=== PATIENT | female | born 1995 | race Caucasian/White ===

== ENCOUNTER 2017-10-02 15:33 | Outpatient (CLI) | payer OTHER ==
--- NOTE | 2017-10-02 17:11 | Non Stress Test Report ---
Non Stress Test Datetime Report Generated by CPN: 10/02/2017 17:11 DEMOGRAPHIC EGA NST: 40.6 INDICATION Indication for Study: Other Indication for Study (NST) Other: repeat NST, post dates VITAL SIGNS Temperature - NST: 97.9 Pulse - NST: 99 RESP - NST: 14 NBPSYS NST: 106 NBPDIA NST: 69 MONITORING Monitor Explained: Monitor Explained; Test Explained; Patient Verbalized Understanding Time on Monitor: 10/02/2017 15:49 Time off Monitor: 10/02/2017 16:43 NST Duration: 54 NST INTERVENTIONS NST Interventions: PO Hydration Physician Notified NST: Dr. Bustos BABY A: [id number] BABY A Movement : Present Contraction Frequency : rare FHR Baseline : 145 Accelerations : 15X15 Decelerations : None Variability : Moderate 6-25bpm NST Review: Meets Criteria for Reactive NST NST Review and Verified By : ALISON Fletcher Results: Reactive NST REPORT Report Trigger: Send Report
== END 2017-10-02 16:50 | disposition home or self-care (01) ==
LOC: LC 15:33 → UNDOADMIN 10-05 01:51 → LR 10-05 01:51 → UNDODISIN 10-05 02:07
PROVIDERS: ATTEND Obstetrics & Gynecology Gynecology
PROC: 4A1HXCZ Monitoring of Products of Conception, Cardiac Rate, External Approach (ICD-10-PCS; principal; 2017-10-02)
DX: O48.0 Post-term pregnancy (principal); Z3A.40 40 weeks gestation of pregnancy
CPT/HCPCS: 59025

== ENCOUNTER 2017-10-05 02:05 | Inpatient (IN) | payer OTHER ==
[2017-10-05] MEDS ORDERED: RINGERS SOLUTION,LACTATED 300 ML IV ONE (02:13)
[2017-10-05] MEDS ORDERED: RINGERS SOLUTION,LACTATED 1,000 ML IV PRN (02:13)
[2017-10-05] MEDS ORDERED: DINOPROSTONE 10 MG VAGINAL INSERT.SR PV PRN (02:13)
[2017-10-05 02:36] LABS: ABSOLUTE EOSINOPHILS # (AUTO) 0.1 10^3/uL (0.0-0.6); ABSOLUTE LYMPHOCYTES (AUTO) 2.1 10^3/uL (0.5-4.7); ABSOLUTE MONOCYTES (AUTO) 0.5 10^3/uL (0.1-1.4); ABSOLUTE NEUT (AUTO) 4.8 10^3/uL (1.7-8.2); BASOPHILS % (AUTO) 0.3 % (0-2); EOSINOPHILS % (AUTO) 1.2 % (0-6); HEMATOCRIT 39.8 % (36.0-47.0); HEMOGLOBIN 13.7 g/dL (12.0-15.5); LYMPHOCYTES % (AUTO) 28.1 % (13-45); MEAN CORPUSCULAR HEMOGLOBIN 29.7 pg (27.0-33.4); MEAN CORPUSCULAR HGB CONC 34.3 g/dL (32.0-36.0); MEAN CORPUSCULAR VOLUME 87 fl (80-97); MONOCYTES % (AUTO) 6.7 % (3-13); PLATELET COUNT 189 10^3/uL (150-450); RED CELL DISTRIBUTION WIDTH 14.6 % (11.5-14.0); SEGMENTED NEUTROPHILS % (AUTO) 63.7 % (42-78); TOTAL CELLS COUNTED % (AUTO) 100 %; WHITE BLOOD COUNT 7.6 10^3/uL (4.0-10.5)
[2017-10-05 02:40] LABS: APPEARANCE,URINE CLOUDY; BILIRUBIN,URINE NEGATIVE (NEGATIVE); COLOR,URINE YELLOW; GLUCOSE, URINE 150 mg/dL (NEGATIVE); KETONES,URINE NEGATIVE (NEGATIVE); LEUKOCYTE ESTERASE,URINE LARGE (NEGATIVE); NITRITE,URINE NEGATIVE (NEGATIVE); PROTEIN,URINE NEGATIVE (NEGATIVE); URINE SPECIFIC GRAVITY 1.017; UROBILINOGEN,URINE NEGATIVE mg/dL (<2.0)
[2017-10-05 02:56] LABS: URINE AMPHETAMINES SCREEN NEGATIVE; URINE BARBITURATES SCREEN NEGATIVE; URINE BENZODIAZEPINES SCREEN NEGATIVE; URINE COCAINE SCREEN NEGATIVE; URINE MARIJUANA (THC) SCREEN NEGATIVE; URINE METHADONE SCREEN NEGATIVE; URINE PHENCYCLIDINE SCREEN NEGATIVE
[2017-10-05] MEDS ORDERED: OXYTOCIN/NORMAL SALINE 20 UNIT/1,000 ML RTUINJ IV PRN ×2 (04:44→13:37)
[2017-10-05] MEDS ORDERED: OXYTOCIN/NORMAL SALINE 20 UNIT/1,000 ML RTUINJ ONE (05:01)
--- NOTE | 2017-10-05 05:17 | Admission Physical ---
Datetime Report Generated by CPN: 10/05/2017 05:17 CURRENT ADMISSION Chief Complaint: Scheduled Induction of Labor Indication for Induction: Postterm Admit Impression : Term, Intrauterine ; No Active Labor; Intact Membranes; Induction of Labor Admit Plan: Admit to Unit; Initiate Labor Induction Protocol ALLERGIES Medication Allergies: No Medication Allergies: No Known Allergies (10/05/2017) Latex: No Latex Allergies OBSTETRICAL HISTORY EDC: 09/26/2017 00:00 : 2 Para: 1 Term: 1 : 0 SAB: 0 IAB: 0 Ectopic: 0 Livin Cesareans: 0 VBACs: 0 Multiple Births: 0 Gestational Diabetes: No Rh Sensitization: No Incompetent Cervix: No LEIGHTON: No Infertility: No ART Treatment: No Uterine Anomaly: No IUGR: No Hx Previous C/S: No Macrosomia: No Hx Loss/Stillborn: No PIH: No Hx : No Placenta Previa/Abruption: No Depression/PP Depression: No PTL/PROM: No Post Hemorrhage: No Obstetrical History Comments: G1-2013 41 weeks G2- current SEE RECORDS Alcohol: No Marijuana : No Cocaine: No Other Illicit Drugs: No Cigarettes: Never Smoker. 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 Heart Disease: No Hosp/Surgery: Yes Autoimmune Disorder: No Anesthetic Complications: No Kidney Disease: No Abnormal Pap Smear: No Neuro/Epilepsy: No Psychiatric Disorders: No Other Medical Diseases: No Hepatitis/Liver Disease: No Significant Family History: No Varicosities/Phlebitis: No Trauma/Violence : No Thyroid Dysfunction: Yes Medical History Comments: hypothyroidism childbirth INFECTIOUS HISTORY Gonorrhea: No Genital Herpes: No Chlamydia: No Tuberculosis: No Syphilis: No Hepatitis: No HIV/AIDS Exposure: No Rash or Viral Illness: No HPV: No PHYSICAL EXAM General: Normal HEENT: Normal Neurologic: Normal Thyroid: Deferred Heart: Normal Lungs: Normal Breast: Deferred Back: Normal Abdomen: Normal Genitourinary Exam: Normal Extremities: Normal DTRs: Normal Pelvic Type: Adequate Physical Exam Comments: pelvis proven to 8#. Vital Signs: Reviewed VAGINAL EXAM Dilatation: 1 Effacement: 60 Station: -2 Contraction Comments: irreg FETUS A EGA: 41.2 Monitoring: External US FHR- Baseline: 135 Variability: Moderate 6-25bpm Accelerations: 15X15 Decelerations: None FHR Category: Category I Presentation: Vertex Admit Comment: 21yo at 41+2ega presents for IOL due to Post JORDY. GBS negative. SHe reports she had to be induced at 41wks iwth last as well. Gap in care from 11-25wks. failed 1 hr GTT - passed 3 hr GTT. H/o depression. cvx is 1/60/-2/post/medium. Bishops is 5. Reviewed IOL with patient and options. Cooks catheter placed without difficulty. IOL with pitocin. Pitocin initiated. PLANS FOR LABOR AND DELIVERY Labor and Delivery: None Pain Management: Epidural Feeding Preference: Formula Circumcision: N/A INFORMED CONSENT Informed Consent Obtained: Vaginal Delivery; Induction of Labor; Risks, Benefits and Alternatives Discussed Signature: with User ID: [email or web address]
[2017-10-05] MEDS ORDERED: NALBUPHINE HCL INJ 10 MG/1 ML AMPULE INJ ONE (05:54)
[2017-10-05] MEDS ORDERED: ONDANSETRON HCL INJ/PF 4 MG/2 ML SDV IV PRN (05:54)
[2017-10-05 07:17] LABS: RUBELLA INTERPRETATION POSITIVE
[2017-10-05] MEDS ORDERED: EPHEDRINE SULFATE INJ 50 MG/1 ML AMPULE ONE (10:55)
[2017-10-05] MEDS ORDERED: BUPIVACAINE HCL 0.25 % INJ/PF (2.5 MG/1 ML) 30 ML VIAL ONE (10:56)
[2017-10-05] MEDS ORDERED: FENTANYL/BUPIVACAINE/NS/PF 300 MCG/150 ML RTUINJ EPI ONE (10:56)
[2017-10-05] MEDS ORDERED: MISOPROSTOL 0.2 MG TABLET ONE (11:36)
[2017-10-05] MEDS ORDERED: LIDOCAINE 1% INJ-PF (10 MG/ML) 30 ML SDV ONE (11:36)
--- NOTE | 2017-10-05 12:51 | Delivery Summary ---
Del Sum A-C Datetime Report Generated by CPN: 10/05/2017 12:51 DELIVERY PERSONNEL DELIVERY PERSONNEL: [id number] Delivery Doctor:: Rajeev Bustos MD Nurse Pulper Certified:: Jennifer Thurston CNM Labor and Delivery Nurse:: TERRELL Bhakta Labor and Delivery Nurse:: TERRELL Abebe Preparer/RESTAURANT ASSOCIATE: Constance Ceirraeksandy, BOOSTER STATION OPERATOR MATERNAL INFORMATION Delivery Anesthesia: Epidural Medications After Delivery: Pitocin Bolus-Please Comment Meds After Delivery Comment: Pitocin 20 units in 1000ml open for bolus Maternal Complications: None Provider Comments: SVDVF over intact perineum. Head del with OA with compound rt hand and loop of cord under chin. Left shoulder and body del per Dr. Bustos. Infant to mothers abd, delayed cord clamping, cord clamped, cut per FOB. Placenta intact via andrew. Mother and stable. LABOR SUMMARY EDC: 09/26/2017 00:00 No. Babies in Womb: 1 Attempted: No Labor Anesthesia: Epidural LABOR INFORMATION Reason for Induction: Post Dates Onset of Labor: 10/05/2017 07:00 Complete Dilatation: 10/05/2017 11:30 Cervical Ripening Agents: Other Other Ripening Agents: cook catheter Oxytocin: Induction Group B Beta Strep: negative Antibiotics # of Doses: 0 Antibiotics Time of Last Dose: 0 Name of Antibiotic Given: 0 Steroids Given: None Reason Steroids Not Administered: Not Applicable MEMBRANES Membranes Rupture Method: Artificial Rupture of Membranes: 10/05/2017 10:20 Length of Rupture (hr): 1.30 Amniotic Fluid Color: Clear Amniotic Fluid Amount: Moderate Amniotic Fluid Odor: None STAGES OF LABOR Stage 1 hr: 4 Stage 1 min: 30 Stage 2 hr: 0 Stage 2 min: 8 Stage 3 hr: 0 Stage 3 min: 6 Total Time in Labor hr: 4 Total Time in Labor min: 44 VAGINAL DELIVERY Episiotomy: None Laceration #1: Periurethral Laceration Extension #1: First Degree Other Laceration: bilateral repaired Laceration Repair: Yes Laceration Repair Note: 3.0 chromic x 1 interupted stitch rt periurethral Sponge Count Correct: N/A Sharps Count Correct: N/A CSECTION DELIVERY Primary Indication: N/A Secondary Indication: N/A CSection Incidence: N/A Labor: N/A Elective: N/A CSection Incision: N/A BABY A INFORMATION Delivery Date/Time: 10/05/2017 11:38 Method of Delivery: Vaginal Born in Route : No : N/A Forceps: N/A Vacuum Extraction: N/A Shoulder Dystocia : No PRESENTATION/POSITION BABY A Presentation: Cephalic Cephalic Presentation: Vertex Vertex Position: Right Mentum Anterior Breech Presentation: N/A PLACENTA INFORMATION BABY A Placenta Delivery Time : 10/05/2017 11:44 Placenta Method of Delivery: Spontaneous Placenta Status: Delivered SCORES BABY A Heart Rate 1 min: >100 bpm Resp Effort 1 min: Good Cry Reflex Irritability 1 min: Cough or Sneeze or Pulls Away Muscle Tone 1 min: Active Motion Color 1 min: Blue/Pale Resuscitation Effort 1 min: Tactile Stimulation SCORE 1 MIN: 8 Heart Rate 5 min: >100 bpm Resp Effort 5 min: Good Cry Reflex Irritability 5 min: Cough or Sneeze or Pulls Away Muscle Tone 5 min: Active Motion Color 5 min: Body [place], Extremities Blue Resuscitation Effort 5 min: N/A SCORE 5 MIN: 9 Resuscitation Effort 10 min: N/A INFORMATION BABY A Gestational Age at Delivery: 41.2 Gestational Status: Late Term- 41- 41.6 Weeks Outcome : Liveborn Condition : Stable Sex: Female IDENTIFICATION BABY A Infant Verification Date/Time: 10/05/2017 11:58 ID Band Number: [id number] Mother's Name Verified: Yes Infant RN Verifying Infant: MIngrid, RN, J. Ronyard, RN WEIGHT/LENGTH BABY A Infant Birthweight (gm): 3775 Weight (lb): 8 Infant Weight (oz): 5 Length (in): 21.26 Infant Length (cm): 54.00 CORD INFORMATION BABY A No. Cord Vessels: 3 Nuchal Cord : N/A Cord Blood Taken: Yes-For Eval (Mom's Blood Type - or O+) Suction: None ASSESSMENT BABY A Infant Complications: Other Complications- Other: compound right hand Physical Findings at Delivery: Bruising Respirations: Appears Normal Skin to Skin: Yes Care By: D Bellavance RNC Transferred To: Remains with Mother BABY B INFORMATION : N/A SIGNATURES Assignment: Rajeev Bustos MD Signature: with User ID: [email or web address] : with User ID: [email or web address]
[2017-10-05] MEDS ORDERED: DIBUCAINE 1% OINTMENT 28 GM TP PRN (13:37)
[2017-10-05] MEDS ORDERED: MEASLES,MUMPS&RUBELLA VACC/PF 0.5 ML VIAL SUBCUT PRN (13:37)
[2017-10-05] MEDS ORDERED: ACETAMINOPHEN WITH CODEINE #3 TABLET PO PRN ×2 (13:37)
[2017-10-05] MEDS ORDERED: BENZOCAINE/MENTHOL AEROSOL SPRAY 56 ML TOP PRN (13:37)
[2017-10-05] MEDS ORDERED: DIPH/PERTUSS(ACELL)/TETANUS VAC/PF 0.5 ML SYR (>=10YO) IM PRN (13:37)
[2017-10-05] MEDS ORDERED: ZOLPIDEM TARTRATE 5 MG TABLET PO PRN (13:37)
[2017-10-05] MEDS: IBUPROFEN 800 MG TABLET PO SCH ×2 (16:11→22:42)
[2017-10-05] MEDS: FERROUS SULFATE 325 MG TABLET PO SCH (18:26)
[2017-10-05] MEDS: DOCUSATE SODIUM 100 MG CAPSULE PO SCH (18:27)
[2017-10-06] MEDS: IBUPROFEN 800 MG TABLET PO SCH ×3 (05:56→22:10)
[2017-10-06 07:13] LABS: HEMATOCRIT 35.2 % (36.0-47.0); HEMOGLOBIN 12.3 g/dL (12.0-15.5); MEAN CORPUSCULAR HEMOGLOBIN 30.3 pg (27.0-33.4); MEAN CORPUSCULAR VOLUME 87 fl (80-97); PLATELET COUNT 163 10^3/uL (150-450); RED BLOOD COUNT 4.07 10^6/uL (3.72-5.28); RED CELL DISTRIBUTION WIDTH 14.7 % (11.5-14.0)
[2017-10-06] MEDS: DOCUSATE SODIUM 100 MG CAPSULE PO SCH ×2 (09:30→17:04)
[2017-10-06] MEDS: SENNOSIDES/DOCUSATE 8.6-50 MG 1 EACH TABLET PO SCH (09:30)
[2017-10-06] MEDS: FERROUS SULFATE 325 MG TABLET PO SCH ×2 (09:30→17:05)
[2017-10-06] MEDS: PRENATAL VITAMIN W DHA CAPSULE PO SCH (09:30)
[2017-10-06 10:38] LABS: HEPATITIS C VIRUS AB <0.1 s/co ratio (0.0-0.9)
--- NOTE | 2017-10-06 11:35 | PDOC PROGRESS REPORT ---
Subjective-OB Progress Note for:: 10/06/17 Subjective: Pt doing well, no concerns. Reports light bleeding, regular diet and voiding without difficulty. Physical Exam (OB) Vital Signs: Temp Pulse Resp BP Pulse Ox 98.1 F 81 16 113/77 99 10/06/17 08:04 10/06/17 08:04 10/06/17 08:04 10/06/17 08:04 10/06/17 08:04 Intake & Output 10/05/17 10/06/17 10/07/17 06:59 06:59 06:59 Intake Total 240 Balance 240 Weight 93.1 kg - PIH/Pre-Eclampsia Headache: Absent - Abdomen Description: Tender, Soft, Round Hernia Present: No Fundal Description: Firm, Midline Fundal Height: u/u - u/2 Objective-Diagnostic Laboratory: 10/06/17 06:50 10/06/17 06:50 WBC 9.0 RBC 4.07 Hgb 12.3 Hct 35.2 L MCV 87 MCH 30.3 MCHC 35.0 RDW 14.7 H Plt Count 163 Assessment and Plan(PN) - Assessment and Plan (1) (spontaneous vaginal delivery) Is this a current diagnosis for this admission?: Yes (2) Limited care Qualifiers: Trimester: first trimester Qualified Code(s): O09.31 - Supervision of with insufficient care, first trimester Is this a current diagnosis for this admission?: Yes (3) Post term at 41 weeks gestation Is this a current diagnosis for this admission?: Yes - Time Spent with Patient Time with patient: Less than 15 minutes Medications reviewed and adjusted accordingly: Yes - Disposition Anticipated Discharge: Home Within: within 24 hours
[2017-10-07] MEDS: IBUPROFEN 800 MG TABLET PO SCH (05:11)
[2017-10-07 06:15] LABS: HEPATITS B SURFACE ANTIGEN Negative (Negative)
[2017-10-07 07:33] VITALS: BP 114/69
--- NOTE | 2017-10-07 09:03 | PDOC DISCHARGE SUMMARY ---
Final Diagnosis Discharge Date: 10/07/17 - Final Diagnosis (1) (spontaneous vaginal delivery) Is this a current diagnosis for this admission?: Yes (2) Limited care Is this a current diagnosis for this admission?: Yes (3) Post term at 41 weeks gestation Is this a current diagnosis for this admission?: Yes Discharge Data - Discharge Medication Home Medications: Levothyroxine Sodium [Synthroid] 1 tab PO DAILY 10/02/17 Prenat 115/Iron Fum/Folic/Dss [Pnv-Ferrous [id number]] 1 tab PO DAILY 01/10 Reason(s) for Admission: Induction of Labor Procedures: NST Intrapartum Procedure(s): Spontaneous Vaginal Delivery Complication(s): Laceration-Periurethral Laceration-Degree: 1st - Diagnosis Test Laboratory: 10/05/17 10/05/17 02:00 02:25 RBC 4.60 Hgb 13.7 Hct 39.8 Urine Opiates Screen NEGATIVE - Discharge information/Instructions Discharge Activity: Balance Activity w/Rest, Pelvic Rest Discharge Diet: Regular Disposition: HOME, SELF-CARE Follow up with: [facility] in: 4, Weeks
[2017-10-07] MEDS: SENNOSIDES/DOCUSATE 8.6-50 MG 1 EACH TABLET PO SCH (10:06)
[2017-10-07] MEDS: FERROUS SULFATE 325 MG TABLET PO SCH (10:06)
[2017-10-07] MEDS: DOCUSATE SODIUM 100 MG CAPSULE PO SCH (10:06)
[2017-10-07] MEDS: PRENATAL VITAMIN W DHA CAPSULE PO SCH (10:07)
== END 2017-10-07 12:40 | disposition home or self-care (01) | DRG 775 ==
LOC: LR 02:05 → 2N 14:00
PROVIDERS: ADMIT Obstetrics & Gynecology Gynecology; ATTEND Obstetrics & Gynecology Gynecology
PROC: 10E0XZZ Delivery of Products of Conception, External Approach (ICD-10-PCS; principal; 2017-10-05)
PROC: 0HQ9XZZ Repair Perineum Skin, External Approach (ICD-10-PCS; 2017-10-05)
DX: O48.0 Post-term pregnancy (principal); O99.284 Endocrine, nutritional and metabolic diseases complicating childbirth; E03.9 Hypothyroidism, unspecified; O70.0 First degree perineal laceration during delivery; Z3A.41 41 weeks gestation of pregnancy; Z37.0 Single live birth
CPT/HCPCS: 36415; 80307; 81005; 85025; 85027; 86592; 86762; 86803; 86804; 86850; 86900; 86901; 87340; C1726; J2590; J3010; J3490